=== PATIENT | female | born 1935 | race Caucasian/White ===

== ENCOUNTER 2016-11-13 08:03 | Inpatient (IN) | payer MEDICARE, OTHER ==
[~2016-11-13] VITALS: Ht 147.3 cm; Wt 46.1 kg
[~2016-11-13 08:03] MED LIST: ACET-709 PO; CEPH-376 PO; CYCL-259 PO; HYDR25TA6 PO; LISI5TAB7 PO; PRAV40TA2 PO; PREG25CA PO
[2016-11-13 09:23] LABS: ASPARTATE AMINO TRANSFERASE 19 U/L (15-37); BLOOD UREA NITROGEN 14 mg/dL (7-18)
[2016-11-13] MEDS ORDERED: ONDANSETRON ODT 4 MG PO PRN (11:30)
[2016-11-13] MEDS: ACETAMINOPHEN 325 MG TABLET PO PRN ×3 (12:30→20:38)
[2016-11-13] MEDS: ENOXAPARIN 40 MG/0.4 ML SQ SCH (12:30)
[2016-11-13] MEDS: SODIUM CHLORIDE 0.9% 1,000 ML IV SCH (12:30)
[2016-11-13] MEDS ORDERED: MECLIZINE 12.5 MG TABLET PO PRN (13:30)
[2016-11-13 13:34] VITALS: BP 147/71
[2016-11-13 17:20] VITALS: BP 139/68
[2016-11-13 17:21] VITALS: BP_SYST 166; BP_SYST 168; BP_DIAS 77; BP_DIAS 81
[2016-11-13 19:43] VITALS: BP 173/70
[2016-11-13] MEDS: PRAVASTATIN 40 MG TABLET PO SCH (20:38)
[2016-11-14 00:30] VITALS: BP 150/70
[2016-11-14 00:31] VITALS: BP 169/79
[2016-11-14 00:32] VITALS: BP 152/82
[2016-11-14] MEDS: ACETAMINOPHEN 325 MG TABLET PO PRN ×2 (03:42→21:19)
[2016-11-14 05:39] LABS: ASPARTATE AMINO TRANSFERASE 18 U/L (15-37); BLOOD UREA NITROGEN 7 mg/dL (7-18)
[2016-11-14] MEDS: SODIUM CHLORIDE 0.9% 1,000 ML IV SCH (06:33)
[2016-11-14 06:55] VITALS: BP_SYST 161; BP_SYST 168; BP_SYST 180; BP_DIAS 73; BP_DIAS 77; BP_DIAS 79
[2016-11-14] MEDS: LISINOPRIL 5 MG TABLET PO SCH (08:23)
[2016-11-14] MEDS ORDERED: MECLIZINE CHEWABLE 25 MG TAB PO SCH (09:00)
[2016-11-14] MEDS ORDERED: GADOBUTROL 7.5 MMOL/7.5 ML PFS ONE ×2 (10:41→11:20)
[2016-11-14] MEDS: ENOXAPARIN 40 MG/0.4 ML SQ SCH (12:03)
[2016-11-14] MEDS ORDERED: GADOBUTROL 10 MMOL/10 ML PFS ONE (12:07)
[2016-11-14 12:42] VITALS: BP 128/68
[2016-11-14 19:47] VITALS: BP_SYST 138; BP_SYST 164; BP_SYST 167; BP_DIAS 73; BP_DIAS 75; BP_DIAS 86
[2016-11-14] MEDS: PRAVASTATIN 40 MG TABLET PO SCH (21:00)
[2016-11-14] MEDS: AMOXICILLIN/CLAV 875-125MG TABLET PO SCH (21:18)
[2016-11-15 01:06] VITALS: BP 171/81
[2016-11-15] MEDS: SODIUM CHLORIDE 0.9% 1,000 ML IV SCH (06:17)
[2016-11-15 07:02] VITALS: BP_SYST 177; BP_SYST 179; BP_SYST 184; BP_DIAS 78; BP_DIAS 79; BP_DIAS 81
[2016-11-15 07:28] VITALS: BP 183/81
[2016-11-15] MEDS ORDERED: hydrALAzine 20 MG/ML, 1ML IV PRN (07:30)
[2016-11-15 08:02] VITALS: BP 162/74
[2016-11-15] MEDS: ACETAMINOPHEN 325 MG TABLET PO PRN (08:05)
[2016-11-15 08:20] VITALS: BP 146/76
[2016-11-15] MEDS: AMOXICILLIN/CLAV 875-125MG TABLET PO SCH (09:28)
[2016-11-15] MEDS: LISINOPRIL 5 MG TABLET PO SCH (09:29)
[2016-11-15] MEDS ORDERED: CLAR500T3 PO (10:54)
== END 2016-11-15 13:30 | disposition home or self-care (01) | DRG 73 ==
LOC: ED 09:32 → EDIP 10:25 → 4EST 11:54 → DCLOUNGE 11-15 12:52
PROVIDERS: ADMIT Family Medicine
DX: G90.8 Other disorders of autonomic nervous system (principal); G92 Toxic encephalopathy; H70.90 Unspecified mastoiditis, unspecified ear; E87.6 Hypokalemia; E78.5 Hyperlipidemia, unspecified; I10 Essential (primary) hypertension; G89.29 Other chronic pain; H81.399 Other peripheral vertigo, unspecified ear; I11.9 Hypertensive heart disease without heart failure; I95.1 Orthostatic hypotension; M54.9 Dorsalgia, unspecified; G43.909 Migraine, unspecified, not intractable, without status migrainosus; G31.84 Mild cognitive impairment of uncertain or unknown etiology; Z82.3 Family history of stroke; Z90.89 Acquired absence of other organs; Z90.710 Acquired absence of both cervix and uterus; Z88.8 Allergy status to other drugs, medicaments and biological substances; R42 Dizziness and giddiness
CPT/HCPCS: 36415; 70450; 70553; 80053; 80061; 81003; 82533; 83735; 84439; 84443; 85025; 85610; 85730; 93005; 93306; 93880; A9585; J1650; J0360; J7030

== ENCOUNTER → 2017-01-25 | Outpatient (CLI) | payer MEDICARE, OTHER ==
[~2017-01-25] MED LIST changes: +CLAR500T3 PO
[2017-01-25 15:58] LABS: BLOOD UREA NITROGEN 12 mg/dL (7-18)
[2017-01-25 16:02] LABS: ASPARTATE AMINO TRANSFERASE 25 U/L (15-37)
== END | disposition home or self-care (01) ==
LOC: STAR 14:26
PROVIDERS: ATTEND Neurological Surgery
DX: Z01.811 Encounter for preprocedural respiratory examination (principal); S33.130A Subluxation of L3/L4 lumbar vertebra, initial encounter; S33.140A Subluxation of L4/L5 lumbar vertebra, initial encounter; M47.897 Other spondylosis, lumbosacral region; M41.86 Other forms of scoliosis, lumbar region; M48.06 Spinal stenosis, lumbar region; M47.894 Other spondylosis, thoracic region; M25.78 Osteophyte, vertebrae; X58.XXXA Exposure to other specified factors, initial encounter; Y93.89 Activity, other specified; Y92.89 Other specified places as the place of occurrence of the external cause; Y99.8 Other external cause status; R79.1 Abnormal coagulation profile
CPT/HCPCS: 36415; 71020; 72110; 80053; 81003; 85025; 85610; 85730; 93005

== ENCOUNTER 2017-01-31 07:39 | Inpatient (IN) | payer MEDICARE, OTHER ==
[~2017-01-31] VITALS: Ht 144.8 cm; Wt 46.0 kg
[2017-01-31] MEDS ORDERED: LACTATED RINGERS 1,000 ML IV SCH (08:18)
[2017-01-31] MEDS ORDERED: MIDAZOLAM 1 MG/ML, 2ML ONE (08:31)
[2017-01-31] MEDS ORDERED: FENTANYL PF 250 MCG/5ML ONE (08:31)
[2017-01-31] MEDS ORDERED: THROMBIN 5,000 UNIT VIAL TP ONE (08:40)
[2017-01-31] MEDS ORDERED: BUPIVACAINE/PF-EPI 0.5% 1:200K ONE (08:40)
[2017-01-31] MEDS ORDERED: BACITRACIN 50,000 UNIT ONE (08:41)
[2017-01-31 08:47] VITALS: BP 145/74
[2017-01-31] MEDS ORDERED: METOPROLOL 1 MG/ML, 5ML IV PRN (11:30)
[2017-01-31] MEDS ORDERED: HYDROcodone/APAP 7.5-325MG/15ML UDC PO PRN (11:30)
[2017-01-31] MEDS ORDERED: hydrALAzine 20 MG/ML, 1ML IV PRN (11:30)
[2017-01-31] MEDS ORDERED: ONDANSETRON 2MG/ML, 2ML IVPush PRN (11:30)
[2017-01-31] MEDS ORDERED: ALBUTEROL SULFATE 2.5 MG/3 ML NPPB PRN (11:30)
[2017-01-31] MEDS ORDERED: PROMETHAZINE 25 MG/ML, 1ML IV PRN (11:30)
[2017-01-31] MEDS ORDERED: MEPERIDINE/PF 25MG/0.5ML IVPush PRN (11:30)
[2017-01-31] MEDS ORDERED: EPHEDRINE 50 MG/ML, 1ML IVPush PRN (11:30)
[2017-01-31] MEDS ORDERED: ACETAMINOPHEN 325 MG TABLET PO PRN (11:30)
[2017-01-31] MEDS ORDERED: OXYcodone 5 MG/5 ML ORAL.SOL UDC PO PRN (11:30)
[2017-01-31] MEDS ORDERED: MIDAZOLAM 1 MG/ML, 2ML IV PRN (11:30)
[2017-01-31] MEDS: LABETALOL 5MG/ML, 20ML IV PRN ×2 (12:18→12:44)
[2017-01-31] MEDS ORDERED: HYDROmorphone 1 MG/ML, 1ML ONE ×2 (12:25→14:10)
[2017-01-31] MEDS ORDERED: FENTANYL PF 100 MCG/2ML ONE (12:25)
[2017-01-31] MEDS ORDERED: OXYcodone 5 MG/5 ML ORAL.SOL UDC ONE (12:25)
[2017-01-31] MEDS: FENTANYL PF 100 MCG/2ML IV PRN ×2 (12:27→12:48)
[2017-01-31] MEDS ORDERED: hydrALAzine 20 MG/ML, 1ML ONE (13:04)
[2017-01-31] MEDS: HYDROmorphone 1 MG/ML, 1ML IV PRN ×4 (13:30→14:27)
[2017-01-31] MEDS ORDERED: PROPOFOL 10 MG/ML, 20ML ONE (15:51)
[2017-01-31] MEDS ORDERED: CEFAZOLIN 1,000 MG ONE (15:51)
[2017-01-31] MEDS ORDERED: DEXAMETHASONE 4 MG/ML, 1ML ONE (15:51)
[2017-01-31] MEDS ORDERED: SUCCINYLCHOLINE 20 MG/ML, 10ML ONE (15:51)
[2017-01-31] MEDS ORDERED: ROCURONIUM 10 MG/ML ONE (15:51)
[2017-01-31] MEDS ORDERED: GLYCOPYRROLATE 0.2MG/1ML ONE (15:51)
[2017-01-31] MEDS ORDERED: ONDANSETRON 2MG/ML, 2ML ONE (15:51)
[2017-01-31] MEDS ORDERED: NEOSTIGMINE 1 MG/ML, 10ML ONE (15:51)
[2017-01-31] MEDS ORDERED: ONDANSETRON 2MG/ML, 2ML IV PRN (16:30)
[2017-01-31] MEDS ORDERED: BISACODYL 10 MG SUPP PR PRN (16:30)
[2017-01-31] MEDS ORDERED: TIZANIDINE 4MG TABLET PO PRN (16:30)
[2017-01-31] MEDS ORDERED: MAGNESIUM HYDROXIDE 8%, 30ML UDC PO PRN (16:30)
[2017-01-31] MEDS: NS + 20MEQ KCL 1,000 ML IV SCH (18:16)
[2017-01-31 19:43] VITALS: BP 157/78
[2017-01-31] MEDS ORDERED: PRAVASTATIN 40 MG TABLET PO SCH (21:00)
[2017-02-01 00:14] VITALS: BP 120/63
[2017-02-01] MEDS: HYDROcodone/APAP 5/325 TABLET PO PRN ×3 (00:41→11:52)
[2017-02-01 00:49] VITALS: BP 140/59
[2017-02-01 03:53] VITALS: BP 136/64
[2017-02-01] MEDS: NS + 20MEQ KCL 1,000 ML IV SCH (05:49)
[2017-02-01 08:15] VITALS: BP 117/57
[2017-02-01] MEDS ORDERED: HYDR-3144 PO (08:52)
[2017-02-01] MEDS ORDERED: TIZA2TAB PO (08:52)
[2017-02-01] MEDS ORDERED: SENNA/DOCUSATE TABLET PO SCH (09:00)
[2017-02-01] MEDS ORDERED: HYDROCHLOROTHIAZIDE 25 MG TABLET PO SCH (09:00)
[2017-02-01] MEDS ORDERED: LISINOPRIL 5 MG TABLET PO SCH (09:00)
== END 2017-02-01 12:30 | disposition home or self-care (01) | DRG 519 ==
LOC: OUT 07:39 → 4NOR 15:45 → OUT 15:56 → 4NOR 15:56 → DCLOUNGE 02-01 12:07
PROVIDERS: ADMIT Neurological Surgery; ATTEND Neurological Surgery
PROC: 01NR0ZZ Release Sacral Nerve, Open Approach (ICD-10-PCS; 2017-01-31)
PROC: 0SB20ZZ Excision of Lumbar Vertebral Disc, Open Approach (ICD-10-PCS; 2017-01-31)
PROC: 0SB40ZZ Excision of Lumbosacral Disc, Open Approach (ICD-10-PCS; 2017-01-31)
PROC: 01NB0ZZ Release Lumbar Nerve, Open Approach (ICD-10-PCS; principal; 2017-01-31 10:30)
DX: M48.06 Spinal stenosis, lumbar region (principal); E44.1 Mild protein-calorie malnutrition; M48.07 Spinal stenosis, lumbosacral region; I10 Essential (primary) hypertension; E78.00 Pure hypercholesterolemia, unspecified; Z88.6 Allergy status to analgesic agent; Z82.3 Family history of stroke; Z82.61 Family history of arthritis
CPT/HCPCS: 72100; J0690; J1100; J1170; J2250; J2405; J2704; J2710; J3010; J3480; J3490; J0330; J0360; J7120

== ENCOUNTER 2017-02-04 02:17 | Emergency (ER) | payer MEDICARE, OTHER ==
[~2017-02-04] VITALS: Ht 144.8 cm; Wt 45.0 kg
[~2017-02-04 02:17] MED LIST changes: +HYDR-3144 PO; +TIZA2TAB PO
[2017-02-04 04:36] VITALS: BP 163/63
== END 2017-02-04 04:38 | disposition home or self-care (01) ==
LOC: ED 03:36
DX: M54.5 Low back pain (principal); I10 Essential (primary) hypertension; Z90.710 Acquired absence of both cervix and uterus; Z90.89 Acquired absence of other organs
CPT/HCPCS: 99283

== ENCOUNTER 2017-02-14 05:49 | Inpatient (IN) | payer OTHER ==
[~2017-02-14] VITALS: Ht 144.8 cm; Wt 49.5 kg
[2017-02-14] MEDS ORDERED: LACTATED RINGERS 1,000 ML IV SCH (06:19)
[2017-02-14] MEDS ORDERED: LIDOCAINE 1%, 2ML SQ PRN (06:30)
[2017-02-14 06:40] VITALS: BP 174/93
[2017-02-14] MEDS ORDERED: BACITRACIN 50,000 UNIT ONE ×2 (06:43→06:53)
[2017-02-14] MEDS ORDERED: THROMBIN 5,000 UNIT VIAL TP ONE ×3 (06:43→08:46)
[2017-02-14] MEDS ORDERED: BUPIVACAINE/PF-EPI 0.5% 1:200K ONE (06:43)
[2017-02-14] MEDS ORDERED: MIDAZOLAM 1 MG/ML, 2ML ONE (07:35)
[2017-02-14] MEDS ORDERED: FENTANYL PF 250 MCG/5ML ONE (07:35)
[2017-02-14] MEDS ORDERED: BUPIVACAINE/PF-EPI 0.5% 1:200K INFIL ONE (08:46)
[2017-02-14] MEDS ORDERED: ONDANSETRON 2MG/ML, 2ML IVPush PRN ×2 (09:00→10:00)
[2017-02-14] MEDS ORDERED: ALBUTEROL/IPRATROPIUM 2.5MG/0.5MG, 3 ML NPPB PRN (09:00)
[2017-02-14] MEDS ORDERED: OXYcodone 5 MG/5 ML ORAL.SOL UDC PO PRN (09:00)
[2017-02-14] MEDS ORDERED: ACETAMINOPHEN 325 MG TABLET PO PRN (09:00)
[2017-02-14] MEDS ORDERED: MEPERIDINE/PF 25MG/0.5ML IVPush PRN (09:00)
[2017-02-14] MEDS ORDERED: HYDROmorphone 1 MG/ML, 1ML IV PRN (09:00)
[2017-02-14] MEDS ORDERED: MIDAZOLAM 1 MG/ML, 2ML IV PRN (09:00)
[2017-02-14] MEDS ORDERED: PROMETHAZINE 25 MG/ML, 1ML IV PRN (09:00)
[2017-02-14] MEDS ORDERED: hydrALAzine 20 MG/ML, 1ML IV PRN (09:00)
[2017-02-14] MEDS ORDERED: FENTANYL PF 100 MCG/2ML IV PRN (09:00)
[2017-02-14] MEDS ORDERED: LABETALOL 5MG/ML, 20ML ONE (09:51)
[2017-02-14] MEDS: LABETALOL 5MG/ML, 20ML IV PRN ×2 (09:54→10:10)
[2017-02-14] MEDS ORDERED: HYDROmorphone PCA 30 MG/30 ML ONE (09:59)
[2017-02-14] MEDS: HYDROcodone/APAP 10/325 MG TABLET PO SCH ×4 (10:00→21:19)
[2017-02-14] MEDS: TIZANIDINE 4MG TABLET PO SCH ×2 (10:00→18:00)
[2017-02-14] MEDS ORDERED: PROMETHAZINE 25 MG/ML, 1ML IM PRN (10:00)
[2017-02-14] MEDS ORDERED: HYDROmorphone PCA 30 MG/30 ML IV PRN (10:00)
[2017-02-14] MEDS: NS + 20MEQ KCL 1,000 ML IV SCH ×2 (10:00→15:08)
[2017-02-14] MEDS ORDERED: DIAZEPAM 5 MG/ML, 2ML IVPush PRN (10:00)
[2017-02-14] MEDS ORDERED: DIPHENHYDRAMINE 50 MG CAPSULE PO PRN (10:00)
[2017-02-14] MEDS ORDERED: MAGNESIUM HYDROXIDE 8%, 30ML UDC PO PRN (10:00)
[2017-02-14] MEDS ORDERED: DIPHENHYDRAMINE 50 MG/ML, 1ML IVPush PRN (10:00)
[2017-02-14] MEDS ORDERED: PHARMACY MAY ADJ FOR RENAL FX MC PRN (10:00)
[2017-02-14] MEDS ORDERED: MORPHINE SULFATE 4 MG/ML, 1ML IVPush PRN (10:00)
[2017-02-14] MEDS: DEXAMETHASONE 4 MG/ML, 1ML IVPush SCH ×3 (10:00→21:19)
[2017-02-14] MEDS ORDERED: MEPERIDINE/PF 100 MG/ML IM PRN (10:00)
[2017-02-14] MEDS ORDERED: BISACODYL 10 MG SUPP PR PRN (10:00)
[2017-02-14] MEDS: GABAPENTIN 100 MG CAPSULE PO SCH ×2 (16:21→21:18)
[2017-02-14] MEDS: CEFAZOLIN PMX 1GM/50ML 50 ML IVPB SCH ×2 (16:22→23:59)
[2017-02-14] MEDS ORDERED: PHENYLEPHRINE 10 MG/ML ONE (16:45)
[2017-02-14] MEDS ORDERED: DEXAMETHASONE 4 MG/ML, 1ML ONE (16:45)
[2017-02-14] MEDS ORDERED: SUCCINYLCHOLINE 20 MG/ML, 10ML ONE (16:45)
[2017-02-14] MEDS ORDERED: LABETALOL 5MG/ML 40ML VIAL ONE (16:45)
[2017-02-14] MEDS ORDERED: ONDANSETRON 2MG/ML, 2ML ONE (16:45)
[2017-02-14] MEDS ORDERED: CEFAZOLIN 1,000 MG ONE (16:45)
[2017-02-14] MEDS ORDERED: PROPOFOL 10 MG/ML, 20ML ONE (16:45)
[2017-02-14 20:20] VITALS: BP 167/71
[2017-02-14] MEDS: SODIUM CHLORIDE FLUSH 10ML SYR IVF SCH (21:18)
[2017-02-14] MEDS: PRAVASTATIN 40 MG TABLET PO SCH (21:19)
[2017-02-15 00:55] VITALS: BP 128/73
[2017-02-15] MEDS: TIZANIDINE 4MG TABLET PO SCH ×3 (02:00→18:00)
[2017-02-15] MEDS: HYDROcodone/APAP 10/325 MG TABLET PO SCH ×2 (02:00→05:24)
[2017-02-15 03:23] VITALS: BP 155/69
[2017-02-15] MEDS: DEXAMETHASONE 4 MG/ML, 1ML IVPush SCH ×4 (03:42→21:35)
[2017-02-15] MEDS: NS + 20MEQ KCL 1,000 ML IV SCH ×2 (03:42→16:17)
[2017-02-15 07:30] VITALS: BP 167/73
[2017-02-15] MEDS: GABAPENTIN 100 MG CAPSULE PO SCH ×3 (08:20→21:35)
[2017-02-15] MEDS: HYDROCHLOROTHIAZIDE 25 MG TABLET PO SCH (08:20)
[2017-02-15] MEDS: SENNA/DOCUSATE TABLET PO SCH (08:20)
[2017-02-15] MEDS: LISINOPRIL 5 MG TABLET PO SCH (08:21)
[2017-02-15] MEDS: SODIUM CHLORIDE FLUSH 10ML SYR IVF SCH ×2 (08:21→21:35)
[2017-02-15 14:50] VITALS: BP 119/57
[2017-02-15 19:36] VITALS: BP 142/83
[2017-02-15] MEDS: PRAVASTATIN 40 MG TABLET PO SCH (21:00)
[2017-02-16] MEDS: TIZANIDINE 4MG TABLET PO SCH ×3 (02:00→22:00)
[2017-02-16 04:23] VITALS: BP 160/80
[2017-02-16] MEDS: DEXAMETHASONE 4 MG/ML, 1ML IVPush SCH ×3 (04:38→23:00)
[2017-02-16 07:27] VITALS: BP 166/80
[2017-02-16] MEDS: HYDROCHLOROTHIAZIDE 25 MG TABLET PO SCH (09:03)
[2017-02-16] MEDS: LISINOPRIL 5 MG TABLET PO SCH (09:03)
[2017-02-16] MEDS: GABAPENTIN 100 MG CAPSULE PO SCH ×2 (09:03→19:46)
[2017-02-16] MEDS: SENNA/DOCUSATE TABLET PO SCH (09:03)
[2017-02-16] MEDS: SODIUM CHLORIDE FLUSH 10ML SYR IVF SCH ×2 (09:04→19:46)
[2017-02-16 13:16] VITALS: BP 158/77
[2017-02-16] MEDS ORDERED: GADOBUTROL 7.5 MMOL/7.5 ML PFS ONE (16:30)
[2017-02-16] MEDS: PRAVASTATIN 40 MG TABLET PO SCH (19:46)
[2017-02-16 20:19] VITALS: BP 104/58
[2017-02-17 02:36] VITALS: BP 151/78
[2017-02-17] MEDS: TIZANIDINE 4MG TABLET PO SCH (02:45)
[2017-02-17] MEDS: DEXAMETHASONE 4 MG/ML, 1ML IVPush SCH (06:13)
[2017-02-17] MEDS: SENNA/DOCUSATE TABLET PO SCH (09:00)
[2017-02-17] MEDS ORDERED: TRAM50TA2 PO (09:48)
[2017-02-17] MEDS ORDERED: TIZA2TAB PO (09:48)
[2017-02-17] MEDS ORDERED: DEXA2TAB PO (09:48)
[2017-02-17] MEDS ORDERED: GABA-826 PO (09:48)
[2017-02-17 09:54] VITALS: BP 129/71
[2017-02-17] MEDS: LISINOPRIL 5 MG TABLET PO SCH (10:04)
[2017-02-17] MEDS: HYDROCHLOROTHIAZIDE 25 MG TABLET PO SCH (10:04)
[2017-02-17] MEDS: GABAPENTIN 100 MG CAPSULE PO SCH (10:04)
[2017-02-17] MEDS: SODIUM CHLORIDE FLUSH 10ML SYR IVF SCH (10:05)
[2017-02-17 13:20] VITALS: BP 126/68
[2017-02-17 13:29] VITALS: BP 154/68
== END 2017-02-17 13:45 | disposition home or self-care (01) | DRG 517 ==
LOC: OUT 05:49 → ORIP 09:47 → 4NOR 13:00 → OBSVTOIN 02-15 14:09
PROVIDERS: ADMIT Neurological Surgery; ATTEND Neurological Surgery
PROC: 01NB0ZZ Release Lumbar Nerve, Open Approach (ICD-10-PCS; principal; 2017-02-14 07:30)
DX: M51.16 Intervertebral disc disorders with radiculopathy, lumbar region (principal); I10 Essential (primary) hypertension; E78.00 Pure hypercholesterolemia, unspecified; M19.90 Unspecified osteoarthritis, unspecified site; E78.5 Hyperlipidemia, unspecified; G89.29 Other chronic pain; Z79.899 Other long term (current) drug therapy; Z88.6 Allergy status to analgesic agent; Z82.61 Family history of arthritis; Z82.3 Family history of stroke
CPT/HCPCS: 70544; 70553; 72100; 72148; 72195; A9585; G0378; J0690; J1100; J1170; J2250; J2405; J2704; J3010; J3480; J3490; J0330; J2370; J7120

== ENCOUNTER 2017-03-03 09:29 | Emergency (ER) | payer OTHER ==
[~2017-03-03] VITALS: Ht 144.8 cm; Wt 45.0 kg
[2017-03-03 09:30] VITALS: BP 89/49
== END 2017-03-03 11:00 | disposition home or self-care (01) ==
LOC: ED 10:45
DX: M25.522 Pain in left elbow (principal); M25.512 Pain in left shoulder; M19.90 Unspecified osteoarthritis, unspecified site; I10 Essential (primary) hypertension; E78.5 Hyperlipidemia, unspecified; Z90.710 Acquired absence of both cervix and uterus
CPT/HCPCS: 99284

== ENCOUNTER → 2017-03-03 | Outpatient (CLI) | payer OTHER ==
[~2017-03-03] MED LIST changes: +DEXA2TAB PO; +GABA-826 PO; +TRAM50TA2 PO
== END | disposition home or self-care (01) ==
LOC: RAD 17:09
PROVIDERS: ATTEND Neurological Surgery
DX: M71.21 Synovial cyst of popliteal space [Baker], right knee (principal)

== ENCOUNTER 2018-04-29 13:16 | Emergency (ER) | payer OTHER ==
[~2018-04-29] VITALS: Ht 147.3 cm; Wt 45.1 kg
[~2018-04-29 13:16] MED LIST changes: -HYDR-3144 PO; +HYDR-3245 PO
[2018-04-29 13:26] VITALS: BP 150/65
[2018-04-29] MEDS ORDERED: DONE10TA56 PO (13:38)
[2018-04-29] MEDS ORDERED: OMEP20TA62 PO (13:38)
== END 2018-04-29 15:07 | disposition home or self-care (01) ==
LOC: ED 14:45
DX: G62.9 Polyneuropathy, unspecified (principal); M25.532 Pain in left wrist; E78.5 Hyperlipidemia, unspecified
CPT/HCPCS: 29105; 99283

== ENCOUNTER 2020-05-18 16:03 | Emergency (ER) | payer OTHER ==
[~2020-05-18] VITALS: Ht 149.9 cm; Wt 44.3 kg
[~2020-05-18 16:03] MED LIST changes: +DONE10TA56 PO; +OMEP20TA62 PO; -TIZA2TAB PO; +TIZA2TAB4 PO
--- NOTE | 2020-05-18 16:30 | NUR ---
LEFT ARM PAIN STARTED SUDDENLY AT NOON UNKNOWN ETIOLOGY. DENIES ANY OTHER SYMPTOMS ECG IN TRIAGE, NSR/VSS ON CRDIAC MONITOR PROVIDER TO BEDSIDE-SUSPECTS ARTHRITIS OF ARM
[2020-05-18] MEDS ORDERED: ACETAMINOPHEN 500 MG TABLET ONE (16:59)
[2020-05-18] MEDS ORDERED: ACETAMINOPHEN 500 MG TABLET PO ONE (17:00)
--- NOTE | 2020-05-18 17:19 | NUR ---
PROVIDED WITH ICE PACKS REVIEWED PROVIDERS POC
[2020-05-18 17:40] VITALS: BP 158/70
== END 2020-05-18 17:41 | disposition home or self-care (01) ==
LOC: ED 17:25
DX: M79.622 Pain in left upper arm (principal); M25.522 Pain in left elbow; R94.31 Abnormal electrocardiogram [ECG] [EKG]; I10 Essential (primary) hypertension; G89.29 Other chronic pain
CPT/HCPCS: 93005; 99284